=== PATIENT | male | born 1995 ===

== ENCOUNTER 2023-09-12 17:58 | Emergency (ER) | payer MEDICARE, MEDICAID, SELFPAY ==
--- NOTE | 2023-09-12 18:07 | ED.GENADULT ---
HPI - General Adult General Chief complaint: Dental/Oral Stated complaint: tooth pain Time Seen by Provider: 09/12/23 18:15 Source: patient and diplomatic interpreter/translator Mode of arrival: ambulatory Limitations: language barrier History of Present Illness HPI narrative: Patient is a 27 year old assigned male at with no reported medical history presenting to the emergency department today with dental pain. Patient states that both lower molars have been painful. Patient denies any dizziness, lightheadedness, abdominal pain, nausea, vomiting, fever, chills, blurry vision, double vision, loss of vision, chest pain, difficulty breathing, shortness of breath, back pain, night sweats, pain with urination, increased urinary frequency, increased urinary urgency, blood in his urine or stool, syncope or a near syncopal episode, recent trauma or falls, bowel incontinence, bladder incontinence, bowel retention, bladder retention, or any other complaints at this time. Onset (ago): day(s) Location: mouth, left and right Radiation: non-radiation Severity: mild Severity scale (1-10): 3 Quality: aching and dull Pain Consistency: constant Relieving factors: none Exacerbating factors: none Associated symptoms: denies other symptoms Treatments prior to arrival: none Related Data Previous Rx's Medication Instructions Recorded chlorhexidine gluconate 0.12 % 15 ml buccal BID #118 mL 09/12/23 mouthwash (Peridex) naproxen 500 mg tablet 500 mg PO BID 7 days #14 tabs 09/12/23 penicillin V potassium 500 mg 500 mg PO BID 10 days #20 tabs 09/12/23 tablet Allergies Allergy/AdvReac Type Severity Reaction Status Date / Time No Known Allergies Allergy Unverified 06/07/20 18:51 [No Known Allergies*] Review of Systems Constitutional: Constitutional: Reports no additional constitutional complaints, Denies chills, Denies fever(s) and Denies night sweats Eyes: Eyes: Reports no additional eye complaints, Denies blurry vision, Denies change in vision, Denies diplopia, Denies eye discharge, Denies loss of vision and Denies eye pain ENT: Reports dental pain and Denies dizziness Cardiovascular: Cardiovascular: Reports no additional cardiovascular complaints, Denies chest pain, Denies lightheadedness, Denies Loss of Consciousness and Denies dyspnea Respiratory: Respiratory: Reports no additional respiratory complaints and Denies dyspnea Gastrointestinal: Gastrointestinal: Reports no additional gastrointestinal complaints, Denies abdominal pain, Denies melena, Denies hematochezia, Denies change in bowel habits and Denies change in stool character Genitourinary: Genitourinary: Reports no additional male genitourinary complaints, Denies hematuria, Denies oliguria, Denies difficulty urinating, Denies dysuria, Denies urinary frequency, Denies urinary hesitancy, Denies urinary incontinence and Denies urinary urgency Musculoskeletal: Musculoskeletal: Reports no additional musculoskeletal complaints, Denies numbness and Denies tingling Neurologic: Denies dizziness, Denies loss of vision, Denies numbness and Denies tingling Psychiatric: Psychiatric: Reports no additional psychiatric complaints Endocrine: Endocrine: Reports no additional endocrine complaints Hematologic/Lymphatic: Hematologic/Lymphatic: Reports no additional hematologic/lymphatic complaints Allergic/Immunologic: Allergic/Immunologic: Reports no additional allergic/immunologic complaints PMFSH Past Medical History Attestation statement: The following information was validated with the patient. Source: old records reviewed and nursing notes reviewed Social History Social History Advance Directives: No Advance Directives Information Provided: No Physical Exam ED Vital Signs: Vital Signs - 24 hr 09/12/23 18:08 Temperature 98.2 F Pulse Rate 82 Respiratory Rate 22 H Blood Pressure 124/75 Pulse Oximetry 97 Oxygen Delivery Method Room Air BMI result Body Mass Index 21.0 Const General: cooperative, no acute distress, alert and awake Nutritional Appearance: well nourished Orientation/consciousness: patient oriented x3 Limitations: no limitations [facility] Head: Yes normal to inspection and Yes atraumatic Ears: hearing grossly normal bilaterally and external ears normal General nose exam: Normal external nose present, no nasal discharge noted and no epistaxis Face and sinus: Yes normal facial exam, No abrasion and No laceration Mouth: Normal oral and palatal mucosa present, no drooling and no muffled voice Teeth and gingiva: poor dentition Eyes General: appearance normal, both eyes and all related structures Periorbital: periorbital findings normal Eyelids: Yes eyelids normal Conjunctivae: conjunctivae normal Pupils: Equal, round and reactive pupils present EOM: EOMs intact bilaterally Neck Neck: Yes normal visual inspection, Yes full ROM and Yes no lymphadenopathy Chest Chest palpation & inspection: normal inspection of the chest Resp Effort & Inspection: normal respiratory effort and able to speak in complete sentences GI Inspection: Yes normal to inspection Neuro General: patient oriented x3 and moves all extremities Cranial nerves: Yes Equal, round and reactive pupils present Cognition (Neuro): normal cognition Motor exam (neuro): 5/5 motor strength present throughout Sensory Exam: Normal double simultaneous stimulation for sensation Coordination: [id number] test normal Extrem General: Yes normal to inspection, Yes full ROM and Yes capillary refill normal Psych Appearance: grossly normal Mental Status: mental status grossly normal Affect: normal affect Attitude: cooperative Thought process: Normal thought process present Thought content: Normal thought content present Insight: Good insight present (Psych) Medications Administered Discontinued Medications Generic Name Dose Route Start Last Admin Trade Name Freq PRN Reason Stop Dose Admin Oxycodone HCl 5 mg 09/12/23 18:16 09/12/23 18:26 Oxycodone Hcl Immed Release 5 Mg Tablet PO 09/12/23 18:17 5 mg ONCE ONE Administration Medical Decision Making Medical Decision Making MDM Narrative: Patient is a 27 year old assigned male at with no reported medical history presenting to the emergency department today with bilateral lower molar pains. Patient's physical exam showed extensive poor dentition but was otherwise unremarkable. Given patient's poor dental health and pain, will cover for infection. I explained my physical exam findings to the patient. I answered all questions asked by the patient. I stressed the importance of the patient taking his medication as prescribed. I stressed the importance of the patient following up with his primary care provider and a dentist. I stressed the importance of the patient returning to the emergency department immediately if his symptoms were to worsen or if he were to develop any dizziness, shortness of breath, difficulty breathing, chest pain, blurry vision, loss of vision, nausea, vomiting, abdominal pain, fever, chills, back pain, or any other complaints. Patient verbalized agreement and understanding with this treatment plan and discharge. Differential Diagnosis Differential Diagnoses: The differential diagnosis associated with the presentation includes Dental abscess Dental pain Poor dentition Prescription Management I considered prescription management with: Pain Medication (patient prescribed pain medication.) and Antibiotic (given patient's clinical presentation, will cover with antibiotic.) Discharge Plan Discharge Clinical Impression: Abscess, dental, Pain, dental Patient Disposition: Home, Self-Care Instructions: Dental Abscess (ED), Toothache (ED) Additional Instructions: Follow up with your primary care provider and a dentist. Return to the emergency department immediately if your symptoms worsen or if you develop any dizziness, shortness of breath, difficulty breathing, chest pain, blurry vision, loss of vision, nausea, vomiting, abdominal pain, fever, chills, back pain, or any other complaints. [place] un seguimiento con leach proveedor de atenci?n primaria y un dentista. Regrese al departamento de emergencias inmediatamente si griselda s?ntomas empeoran o si presenta mareos, dificultad para respirar, dificultad para respirar, dolor en el pecho, visi?n borrosa, p?rdida de la visi?n, n?useas, v?mitos, dolor abdominal, fiebre, escalofr?os, dolor de espalda o cualquier otras quejas. Call or visit any of the clinics below to establish with a dentist: Llame o visite cualquiera de las cl?nicas a continuaci?n para establecer rhys patel con un dentista: [facility] [address] [place] [address] [facility] [address] [facility], [address] [address] [facility] [address] [place] [id number] [facility] [address] [place] [address] [place] [address] [place] [address] Prescriptions: New penicillin V potassium 500 mg tablet 500 mg PO BID 10 Days Qty: 20 0RF naproxen 500 mg tablet 500 mg PO BID 7 Days Qty: 14 0RF chlorhexidine gluconate [Peridex] 0.12 % mouthwash 15 ml buccal BID Qty: 118 0RF Referrals: Justin Najera MD [Primary Care Provider] - Interventions: ED Discharge Assessment Last Done: 09/12/23 18:33 Discharge Date/Time: 09/12/23 18:33 Print Language: Colombian
[2023-09-12 18:08] VITALS: BP 124/75; PULSE 82; RESP 22; TEMP 36.8; O2SAT 97; BMI 21.0
[2023-09-12] MEDS: oxyCODONE HCl Immed Release 5 MG TABLET PO (18:26)
== END 2023-09-12 18:33 | disposition home or self-care (01) ==
PROVIDERS: Emergency Provider Emergency Medicine; PCP Internal Medicine
DX: K04.7 Periapical abscess without sinus (principal)
CPT/HCPCS: 99283

== ENCOUNTER 2024-05-26 11:16 | Emergency (ER) | payer MEDICARE, MEDICAID, SELFPAY ==
[2024-05-26 11:51] LABS: Appearance Urine Clear; Color Urine Dark Yellow; Glucose Urine UA Negative (Negative); Leukocyte Esterase Urine Trace (Negative); Nitrite Urine Negative (Negative); PH 6.5 (5.0-9.0); Specific Gravity - Urine >= 1.030 (1.005-1.025); UMIC TRIGGER UACC YES; Urine Blood Small (1+) (Negative); Urine Ketones Trace mg/dL (Negative); Urine Protein Trace mg/dL (Neg-Trace)
[2024-05-26 11:54] LABS: Bacteria Urine None Seen (None Seen); RBC Urine >20 /HPF (0-2); Squamous Epithelial Cell Urine 0-2 /HPF (0-2); WBC Urine 0-5 /HPF (0-5)
--- NOTE | 2024-05-26 12:50 | ED_ITS ---
HPI - Psych General Chief Complaint: ETOH/Substance Use Stated Complaint: crisis Time Seen by Provider: 05/26/24 11:25 Source: patient and intensive care nurse Mode of arrival: ambulatory Limitations: language barrier History of Present Illness ED Provider: tiff AG Narrative: Patient is a 28-year-old male presenting to the emergency department requesting rehab for cocaine use. Denies chest pain, shortness of breath, palpitations. Reports using cocaine every few days, using marijuana daily. Denies suicidal or homicidal ideation but reports some depression. Denies any physical complaints. MD complaint: feels depressed and substance abuse History of same: Yes Context: recent drug abuse Associated psychiatric symptoms: depression Associated symptoms: denies other symptoms Treatments prior to arrival: none If self harm: admits thoughts of self harm Related Data Previous Rx's ?Medication ?Instructions ?Recorded chlorhexidine gluconate 0.12 % 15 ml buccal BID #118 mL 09/12/23 mouthwash (Peridex) naproxen 500 mg tablet 500 mg PO BID 7 days #14 tabs 09/12/23 penicillin V potassium 500 mg 500 mg PO BID 10 days #20 tabs 09/12/23 tablet Allergies Allergy/AdvReac Type Severity Reaction Status Date / Time No Known Allergies Allergy Verified 05/26/24 11:50 [No Known Allergies*] Review of Systems Review of Systems: As per HPI Yes all other systems are reviewed and are negative Constitutional: Constitutional: Reports as per [facility]PI [facility] Social History Social History Alcohol intake: current Alcohol intake frequency: a few times a month Alcohol type: beer Smoked in Last 30 Days: Yes Use of substances other than those prescribed or required for medical reasons: Yes Substance Use Type: Crack/Cocaine and Marijuana Substance Use Frequency: Daily Advance Directives: No Advance Directives Information Provided: Yes Do you have a plan to hurt others: No Plan Physical Exam Vital Signs: Vital Signs: BMI result Body Mass Index 20.0 Const: General: cooperative, healthy appearing and no acute distress Orientation/consciousness: oriented to person, oriented to place, oriented to time and patient oriented x3 Limitations: no limitations HEENT: Head: Yes normocephalic and Yes atraumatic Ears: external ears normal General nose exam: Normal external nose present Face and sinus: Yes face symmetric Mouth: oropharynx normal and moist mucous membranes Throat: Yes uvula midline Eyes: Pupils: Equal, round and reactive pupils present Neck: Neck: Yes normal visual inspection and Yes supple Resp: Effort & Inspection: normal respiratory effort and able to speak in complete sentences Auscultation: clear to auscultation bilaterally Cardio: Rate: regular rate Rhythm: regular rhythm Heart sounds: S1 normal heart sound present and S2 normal heart sound present GI: Palpation (GI): Soft to palpation and nontender Auscultation: normoactive bowel sounds : General: Yes no CVA tenderness Back/Spine/Pelvis: Back: no CVA tenderness Skin: General skin exam: elasticity normal and turgor normal Neuro: General: oriented to person, oriented to place, oriented to time, patient oriented x3, moves all extremities, no focal motor deficits and CN's II- XI intact bilaterally Cranial nerves: Yes Equal, round and reactive pupils present Cognition (Neuro): normal cognition Extrem: General: Yes full ROM, Yes no pedal edema and Yes no calf tenderness Psych: Mental Status: mental status grossly normal Affect: normal affect Thought process: Normal thought process present Thought content: suicidality, no homicidality, no hallucinations and Depressive thoughts present Medical Decision Making Medical Decision Making [facility] Narrative: Patient is a 28-year-old male presenting to the emergency department requesting rehab for cocaine use. On exam patient is awake, A+Ox3, VS WNL, afebrile, normal neurological exam without focal deficits, physical exam findings as above. Given reported symptoms and physical exam findings, initial differential includes substance use disorder, depression. Plan is for medical clearance then addiction medicine consults/CARE team eval. Patient now stating that he wants to be discharged because he cannot use his phone in the pod as this is against the safety rules. He has denies SI/HI since arrival. Feel patient is safe for discharge. Return precautions discussed and patient advised he can return at any time should he change his mind. Differential Diagnosis Differential Diagnoses: The differential diagnosis associated with the pre sentation includes as per mdm Admission/Observation Consideration of admission/observation: Escalation of care including admiss ion/observation considered Patient would have been admitted to the hospital had their work up had any findings where hospital admission was appropriate and their clinical presentation warranted hospital admission. Lab Data Labs: Lab Results 05/26/24 Range/Units 11:43 Urine Color Dark Yellow Urine Appearance Clear Urine pH 6.5 (5.0-9.0) Ur Specific [place] >= 1.030 H (1.005-1.025) Urine Protein Trace (Neg-Trace) mg/dL Urine Glucose (UA) Negative (Negative) mg/dL Urine Ketones Trace (Negative) mg/dL Urine Blood Small (1+) H (Negative) Urine Nitrite Negative (Negative) Ur Leukocyte Esterase Trace H (Negative) Urine RBC >20 H (0-2) /HPF Urine WBC 0-5 (0-5) /HPF Ur Squamous Epith Cells 0-2 (0-2) /HPF Urine Bacteria None Seen (None Seen) Hyaline Casts 3-5 (0-2) /LPF External Record Review External record reviewed: Inpatient record, Office record and Outpatient record Discharge Plan Discharge Clinical Impression: Substance use disorder Patient Disposition: Home, Self-Care Instructions: Polysubstance Abuse (ED) Additional Instructions: You presented to the emergency department today requesting assistance with detox. You chose to leave the department prior to meeting with the addiction medicine team. You can return to the department at any time should you change your mind. Return to the emergency department if you develop thoughts of hurting yourself or anyone else or any other new or concerning symptoms. Prescriptions: No Action penicillin V potassium 500 mg tablet 500 mg PO BID 10 Days Qty: 20 0RF naproxen 500 mg tablet 500 mg PO BID 7 Days Qty: 14 0RF chlorhexidine gluconate [Peridex] 0.12 % mouthwash 15 ml buccal BID Qty: 118 0RF Print Language: Faroese
[2024-05-26 16:23] VITALS: BP 143/74; PULSE 63; RESP 18; TEMP 36.3; O2SAT 99
[2024-05-26 16:24] VITALS: BP 143/74; PULSE 63; RESP 18; TEMP 36.3; O2SAT 99
== END 2024-05-26 16:25 | disposition home or self-care (01) ==
PROVIDERS: Registered Nurse Emergency; Emergency Provider Emergency Medicine; PCP Internal Medicine
DX: F19.10 Other psychoactive substance abuse, uncomplicated (principal); F32.A Depression, unspecified; Z79.899 Other long term (current) drug therapy
CPT/HCPCS: 81001; 99283; 99284